=== PATIENT | male | born 1970 | race Caucasian/White ===

== ENCOUNTER 2020-09-10 20:39 | Observation (INO) ==
[2020-09-10 21:40] LABS: BASOPHILS # (AUTO) 0.1 X10^3/uL (0.0-0.1); BASOPHILS % (AUTO) 0.5 % (0.2-1.0); EOSINOPHILS # (AUTO) 0.2 x10^3/uL (0.0-0.2); EOSINOPHILS % (AUTO) 1.3 % (0.9-2.9); HEMATOCRIT 45.2 % (42.0-54.0); HEMOGLOBIN 15.2 g/dL (13.5-18.0); LYMPHOCYTES # (AUTO) 2.4 X10^3/uL (1.3-2.9); LYMPHOCYTES % (AUTO) 14.6 % (21.0-51.0); MEAN CORPUSCULAR HGB CONC 33.5 g/dL (33.0-35.0); MEAN CORPUSCULAR VOLUME 92.5 fL (80.0-100.0); MONOCYTES # (AUTO) 1.2 x10^3/uL (0.3-0.8); MONOCYTES % (AUTO) 7.3 % (0.0-13.0); NEUTROPHILS # (AUTO) 12.7 x10^3/uL (2.2-4.8); NEUTROPHILS % (AUTO) 76.3 % (42.0-75.0); PLATELET COUNT 292 X10^3/uL (150.0-450.0); RED BLOOD COUNT 4.89 X10^6/uL (4.7-6.0); WHITE BLOOD COUNT 16.6 X10^3/uL (3.6-10.0)
--- NOTE | 2020-09-10 21:47 | RAD ---
Acute abdomen supine upright chest three views 4 imagesIndication: Abdominal pain. Nausea and vomiting.FINDINGSMonitor leads obscure minimal detail. There is no pneumothorax, effusion or consolidation. Heart size is normal. Spine DJD noted. There is no free air or pneumatosis. Gas and stool seen in the colon. No abnormal calcific density identified.IMPRESSIONNo high-grade obstruction, free air or pneumatosis.Electronically signed by: SID ESPINOSA (Sep 10, 2020 21:45:21)
[2020-09-10 22:16] LABS: ALANINE AMINOTRANSFERASE 39 Units/L (12-78); ALBUMIN 4.2 g/dL (3.4-5.0); ALKALINE PHOSPHATASE 82 Units/L (46-116); ASPARTATE AMINO TRANSFERASE 23 Units/L (15-37); BLOOD UREA NITROGEN 20 mg/dL (7-18); CALCIUM 9.8 mg/dL (8.5-10.1); CARBON DIOXIDE 30.6 mmol/L (21-32); CHLORIDE 102 mmol/L (98-107); CKMB % 1.8 % (<4); COR NA(FOR HYPERGLY) 146 mmol/L (136-145); CREATINE KINASE 456 Units/L (39-308); CREATININE 1.25 mg/dL (0.70-1.30); SODIUM 145 mmol/L (136-145); TOTAL PROTEIN 7.8 g/dL (6.4-8.2); TROPONIN I < 0.02 ng/mL (0-1.5); eGFR NON BLACK RACES > 60 (>60)
[2020-09-10] MEDS ORDERED: NS 1000 ML 1,000 ML IV ONE (23:00)
[2020-09-10] MEDS ORDERED: NS 1000 ML 1,000 ML ONE (23:07)
--- NOTE | 2020-09-10 23:08 | DR.ABDMALE ---
HPI Time seen Time Seen by Provider: 09/10/20 22:11 PCP Primary Care Physician: TIA HPI comment HPI Comment: chest and upper epigastric pain w diaphoresis just captain cannery tender. Complaint Chief Complaint:: PT STATES JUST PRIOT TO CALLING EMS HE BEGAN TO HAVE A PAINFUL "FULL FEELING" IN THE TOP OF HIS ABDOMEN AND IMMEDIATELY BECAME VERY "SWEATY, COULDNT BREATH, AND WAS VERY NAUSEATED." HIS GAVE HIM 81 MG OF ASA BEFORE EMS ARRIVED AND EMS GAVE ANOTHER DOSE OF ASA TO EQUAL 324MG. 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 ON ARRIVAL PT STATES THAT HE FEELS BETTER WITH NO PAIN EXCEPT FOR A CRAMP IIN HIS LEFT THIGH. COVID-19 Coronavirus risk:travel/contact w/high risk person: No Has patient experienced Coronavirus symptoms: No Source History provided by:: Patient Mode of arrival Mode of Arrival: EMS Timing Onset of Chief Complaint: 09/10/20 PMH PMH Past Medical History: Yes Past Medical History: Dyslipidemia and Hypertension Past Surgical History: Yes Surgical History: Other Past Surgical History Comment: PT STATES THAT A HE HAD PART OF HIS SKULL REMOVED DUE TO BEING BORN WITHOUT A SOFT SPOT. Family History History of Family Medical Conditions: No Social History Does patient currently use any type of tobacco product: Yes Have you used tobacco products in the last 12 months: Yes Type of Tobacco Use: Cigarettes Does any household member use tobacco: No Alcohol Use: Occasionally Do you use any recreational Drugs:: Yes (MARIJUANA) Lives With: Family Lives Where: Home Travel Risk Coronavirus risk:travel/contact w/high risk person: No Has patient experienced Coronavirus symptoms: No Infectious screening In the last 2 months have you had wt loss of >10#?: NO Have you had fever, night sweats or hemotysis?: No Have you traveled outside the country in the last 6 months?: No Isolation: Standard ROS Review of Systems Constitutional: See HPI Eyes: No Symptoms Reported ENTM: No Symptoms Reported Respiratoy: No Symptoms Reported Cardiovascular: See HPI Gastrointestinal/Abdominal: See HPI Genitourinary: No Symptoms Reported Neurological: No Symptoms Reported Musculoskeletal: No Symptoms Reported Integumentary: No Symptoms Reported Endocrine: No Symptoms Reported PE Vital Signs Vital Signs: Temp Pulse Resp BP Pulse Ox 09/10/20 23:00 74 24 125/79 99 09/10/20 22:45 65 18 98 09/10/20 22:30 68 22 120/74 99 09/10/20 22:15 74 25 H 100 09/10/20 22:00 73 40 H 131/78 100 09/10/20 21:45 76 14 99 09/10/20 21:30 81 31 H 138/83 100 09/10/20 21:15 71 19 97 09/10/20 21:00 68 19 126/78 100 09/10/20 20:54 82 17 100 09/10/20 20:43 98.3 F 83 21 125/78 99 03/28/12 14:31 118/79 General General Appearance: Alert and In No Apparent Distress Head Head Exam: Normal Inspection, Atraumatic and Normocephalic Eyes Eye exam: Normal Appearance, PERRL and EOMI ENT ENT Exam: Normal Exam and TM's Normal Bilaterally Neck Neck Exam: Normal Inspection and Full ROM Respiratory Respiratory Exam: Normal Lung Sounds Bilat Cardiovascular Cardiovascular Exam: Regular Rate and Normal Heart Sounds Abdominal Exam Abdominal Exam: Normal Inspection and Normal Bowel Sounds Back Back Exam: Normal Inspection and Full ROM Extremeties Extremities Exam: Normal Inspection and Full ROM Neurologic Neurological Exam: Alert and Oriented X3 Skin Skin Exam: Warm, Dry and Intact COURSE Treatment Treatment: elev CK and CK-MB. neg TNI ROR Labs Reviewed Laboratory Results Reviewed?: Yes Result Diagrams: 09/10/20 21:30 09/10/20 21:30 Laboratory: WBC 16.6 X10^3/uL (3.6-10.0) H 09/10/20 21:30 RBC 4.89 X10^6/uL (4.7-6.0) 09/10/20 21:30 Hgb 15.2 g/dL (13.5-18.0) 09/10/20 21:30 Hct 45.2 % (42.0-54.0) 09/10/20 21:30 MCV 92.5 fL (80.0-100.0) 09/10/20 21:30 MCH 31.0 pg (27.0-34.0) 09/10/20 21:30 MCHC 33.5 g/dL (33.0-35.0) 09/10/20 21:30 RDW 13.0 % (11.6-16.5) 09/10/20 21:30 Plt Count 292 X10^3/uL (150.0-450.0) 09/10/20 21:30 MPV 7.0 fL (7.4-11.0) L 09/10/20 21:30 Neut % (Auto) 76.3 % (42.0-75.0) H 09/10/20 21:30 Lymph % (Auto) 14.6 % (21.0-51.0) L 09/10/20 21:30 Sharp % (Auto) 7.3 % (0.0-13.0) 09/10/20 21:30 Eos % (Auto) 1.3 % (0.9-2.9) 09/10/20 21:30 Baso % (Auto) 0.5 % (0.2-1.0) 09/10/20 21:30 Neut # (Auto) 12.7 x10^3/uL (2.2-4.8) H 09/10/20 21:30 Lymph # (Auto) 2.4 X10^3/uL (1.3-2.9) 09/10/20 21:30 Sharp # (Auto) 1.2 x10^3/uL (0.3-0.8) H 09/10/20 21:30 Eos # (Auto) 0.2 x10^3/uL (0.0-0.2) 09/10/20 21:30 Baso # (Auto) 0.1 X10^3/uL (0.0-0.1) 09/10/20 21:30 Absolute Nucleated RBC 0.0 /100WBC 09/10/20 21:30 Sodium 145 mmol/L (136-145) 09/10/20 21:30 Corrected Sodium 146 mmol/L (136-145) H 09/10/20 21:30 Potassium 3.9 mmol/L (3.5-5.1) 09/10/20 21:30 Chloride 102 mmol/L (98-107) 09/10/20 21:30 Carbon Dioxide 30.6 mmol/L (21-32) 09/10/20 21:30 BUN 20 mg/dL (7-18) H 09/10/20 21:30 Creatinine 1.25 mg/dL (0.70-1.30) 09/10/20 21:30 Est GFR (MDRD) Af Amer > 60 (>60) 09/10/20 21:30 Est GFR (MDRD) Non-Af > 60 (>60) 09/10/20 21:30 Glucose 121 mg/dL (65-99) H 09/10/20 21:30 Calcium 9.8 mg/dL (8.5-10.1) 09/10/20 21:30 Corrected Calcium TNP 09/10/20 21:30 Total Bilirubin 0.30 mg/dL (0.2-1.0) 09/10/20 21:30 AST 23 Units/L (15-37) 09/10/20 21:30 ALT 39 Units/L (12-78) 09/10/20 21:30 Alkaline Phosphatase 82 Units/L (46-116) 09/10/20 21:30 Creatine Kinase 456 Units/L (39-308) H 09/10/20 21:30 CK-MB (CK-2) 8.0 ng/mL (0-4.0) H* 09/10/20 21:30 CK/CKMB % Calc 1.8 % (<4) 09/10/20 21:30 Troponin I < 0.02 ng/mL (0-1.5) 09/10/20 21:30 Total Protein 7.8 g/dL (6.4-8.2) 09/10/20 21:30 Albumin 4.2 g/dL (3.4-5.0) 09/10/20 21:30 Globulin 3.6 g/dL (2.5-4.5) 09/10/20 21:30 Albumin/Globulin Ratio 1.2 Ratio (1.1-2.1) 09/10/20 21:30 Opioid Opioid Risk Tool Age (Gordon box if 16-45): No Total: 0 Total Score Risk Category: Low Risk Copyright: Seun TREADWELL predicting aberrant behaviors Diagnosis Discharge Problem: Chest pain, Exposure to excessive natural heat as cause of accidental injury
[2020-09-11 01:49] LABS: CKMB % 2.4 % (<4); CREATINE KINASE 340 Units/L (39-308); TROPONIN I < 0.02 ng/mL (0-1.5)
[2020-09-11 01:50] LABS: CREATINE KINASE MB 8.1 ng/mL (0-4.0)
[2020-09-11 02:38] VITALS: BMI 23.6
[2020-09-11 05:05] LABS: BASOPHILS % (AUTO) 0.5 % (0.2-1.0); EOSINOPHILS # (AUTO) 0.2 x10^3/uL (0.0-0.2); EOSINOPHILS % (AUTO) 2.3 % (0.9-2.9); HEMATOCRIT 38.1 % (42.0-54.0); HEMOGLOBIN 13.1 g/dL (13.5-18.0); LYMPHOCYTES # (AUTO) 2.5 X10^3/uL (1.3-2.9); LYMPHOCYTES % (AUTO) 26.2 % (21.0-51.0); MEAN CORPUSCULAR HEMOGLOBIN 31.4 pg (27.0-34.0); MEAN CORPUSCULAR HGB CONC 34.4 g/dL (33.0-35.0); MEAN CORPUSCULAR VOLUME 91.1 fL (80.0-100.0); MEAN PLATELET VOLUME 7.4 fL (7.4-11.0); MONOCYTES # (AUTO) 0.9 x10^3/uL (0.3-0.8); MONOCYTES % (AUTO) 9.3 % (0.0-13.0); NEUTROPHILS # (AUTO) 5.9 x10^3/uL (2.2-4.8); NEUTROPHILS % (AUTO) 61.7 % (42.0-75.0); PLATELET COUNT 253 X10^3/uL (150.0-450.0); RED BLOOD COUNT 4.18 X10^6/uL (4.7-6.0); RED CELL DISTRIBUTION WIDTH 12.9 % (11.6-16.5); WHITE BLOOD COUNT 9.5 X10^3/uL (3.6-10.0)
[2020-09-11 05:50] LABS: ALANINE AMINOTRANSFERASE 29 Units/L (12-78); ALBUMIN 3.1 g/dL (3.4-5.0); ALKALINE PHOSPHATASE 65 Units/L (46-116); ASPARTATE AMINO TRANSFERASE 20 Units/L (15-37); BLOOD UREA NITROGEN 16 mg/dL (7-18); CALCIUM 8.5 mg/dL (8.5-10.1); CARBON DIOXIDE 29.4 mmol/L (21-32); CHLORIDE 107 mmol/L (98-107); CKMB % 2.4 % (<4); COR CA(FOR HYPOALB) 9.2 mg/dL (8.5-10.1); COR NA(FOR HYPERGLY) 145 mmol/L (136-145); CREATINE KINASE 333 Units/L (39-308); CREATININE 0.83 mg/dL (0.70-1.30); SODIUM 144 mmol/L (136-145); TOTAL PROTEIN 6.1 g/dL (6.4-8.2); TROPONIN I < 0.02 ng/mL (0-1.5); eGFR NON BLACK RACES > 60 (>60)
[2020-09-11 05:52] LABS: CREATINE KINASE MB 8.1 ng/mL (0-4.0)
[2020-09-11] MEDS ORDERED: K-DUR TAB 20 MEQ PO PRN (05:54)
[2020-09-11] MEDS ORDERED: K-RIDER 10 MEQ/NS 100 ML 10 MEQ/100 ML BAG IV PRN (05:54)
[2020-09-11] MEDS ORDERED: KLOR-CON PO PRN (05:54)
[2020-09-11] MEDS ORDERED: POTASSIUM CHLORIDE LIQ 20 MEQ UDC PO PRN (05:54)
[2020-09-11] MEDS ORDERED: POTASSIUM CHL 60 MEQ/NS 0.45% 500 ML IV PRN (05:54)
[2020-09-11] MEDS ORDERED: MICRO K EXTEN CAP 10 MEQ PO PRN (05:54)
[2020-09-11] MEDS ORDERED: POTASSIUM CHL 40 MEQ/NS 0.45% 500 ML IV PRN (05:54)
[2020-09-11] MEDS ORDERED: KLOR-CON ONE (06:03)
[2020-09-11] MEDS ORDERED: NS 1000 ML 1,000 ML IV ONE (09:24)
--- NOTE | 2020-09-11 09:52 | DR.CARTERS ---
Short Stay Summary - Admission Date Date of Admission: 09/10/20 - Discharge Date Discharge Date: 09/11/20 - Admission Diagnoses (1) Chest pain, rule out acute myocardial infarction Status: Acute (2) Rhabdomyolysis Status: Acute - Hospital Course Hospital Course: IS A 50 YEAR OLD PATIENT OF OURS WHO PRESENTED TO THE ER VIA EMS WITH COMPLAINTS OF FEELING FULL IN THE TOP OF HIS ABDOMEN, CHEST PRESSURE, DIAPHORESIS, SHORTNESS OF BREATH, MUSCLE CRAMPING, AND NAUSEA. PATIENT REPORTED THAT SYMPTOMS STARTED ABOUT 45 MINUTES-1 HOUR PRIOR TO ARRIVAL. PATIENT ALSO ADMITTED TO SEVERAL EPISODES OF COUGHING UP A SMALL AMOUNT OF BLOOD. THIS STARTED 3-4 DAYS AGO. HE REPORTED TAKING AN 81MG ASPIRIN PRIOR TO ARRIVAL. 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 ON ARRIVAL TO THE ER, HE REPORTED RELIEF OF CHEST/EPIGASTRIC SYMPTOMS. HIS PMH INCLUDES: DYSLIPIDEMIA, HTN, CARPAL TUNNEL, AND CRANIOSYNOSTOSIS AN . HE DID ADMIT TO REGULAR USE OF MARIJUANA. ON ARRIVAL TO THE HOSPITAL, VITALS WERE 98.3-83-21-99%-125/78. LABS WERE OBTAINED. ABNORMAL LAB VALUES INCLUDED THE FOLLOWING: WBC 16.6, BUN 20, GLUCOSE 121, CREATINE KINASE 456, CK-MB 8.0. TROPONIN WAS NORMAL. COVID-19 NEGATIVE. AN EKG WAS OBTAINED AND REVEALED: SINUS RHYTHM WITH HR 69. AN ABDOMINAL SERIES WAS OBTAINED AND REVEALED: There is no pneumothorax, effusion or consolidation. Heart size is normal. Spine DJD noted. There is no free air or pneumatosis. Gas and stool seen in the colon. No abnormal calcific density identified. IN THE ER, HE WAS GIVEN A NORMAL SALINE BOLUS. PATIENT WAS ADMITTED TO THE HOSPITAL FOR FURTHER EVALUATION AND TREATMENT OF CHEST PAIN RULE OUT ACUTE PR AND RHABDOMYOLYSIS. 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 WE PLANNED TO OBTAIN A CHEST CTA TO RULE OUT PE DUE TO HEMOPTYSIS, SERIAL CARDIAC ENZYMES AND CONTINUE TO MONITOR. ON THE MORNING FOLLOWING ADMISSION, PATIENT IS ALERT AND ORIENTED, LYING IN BED ON MORNING ROUNDS. HE DENIES CHEST PAIN OR EPIGASTRIC PAIN THIS MORNING. HE DOES CONTINUE WITH GENERALIZED MUSCLE ACHES AND CRAMPING. ON EXAMINATION, HEART IS REGULAR IN RATE AND RHYTHM. BILATERAL LUNGS ARE CLEAR TO AUSCULTATION. ABDOMEN IS ROUND, SOFT, AND NON-TENDER WITH NORMAL BOWEL SOUNDS NOTED IN ALL QUADRANTS. HIS VITALS THIS MORNING ARE: 97.9-56-20-100%-129/61. LABS WERE OBTAINED. ABNORMAL LAB VALUES INCLUDE THE FOLLOWING: RBC 4.18, HGB 13.1, HCT 38.1, POTASSIUM 3.4, GLUCOSE 124, CREATINE KINASE 333, CK-MB 8.1, TOTAL PROTEIN 6.1, ALBUMIN 3.1. TROPONIN NORMAL. NO CHANGES NOTED TO EKGs. - Discharge Medications Discharge Medications: Home Medication List aspirin [Aspirin Child] 81 mg PO DAILY 09/11/20 [History] melatonin 3 mg PO HS PRN 09/11/20 [History] Prescriptions: - Discharge Plan Disposition: HOME, SELF-CARE Condition: Stable - Follow up/Referrals Follow up/Referrals: Porfirio Lundberg [Primary Care Provider] - 3 days - Instructions
[2020-09-11] MEDS: MAGNESIUM SULFATE 1 GRAM/100 mL PREMIX 1 GM/100 ML BAG IV PRN ×2 (11:40→12:45)
[2020-09-11] MEDS ORDERED: NS 100 ML IV 100 ML ONE (13:29)
[2020-09-11 13:33] VITALS: BP 136/75
--- NOTE | 2020-09-11 14:04 | CT ---
CTA CHESTCLINICAL INDICATION: CHEST PAIN, HEMOPTYSIS, ELEVATED D-DIMERPROCEDURE: Non gated axial images of the chest were obtained with intravenous contrast according to pulmonary embolism protocol. MIPS were reconstructed Dose reduction techniques including Automated Exposure Control (AEC) and adjustment of mA and kV were utlized.COMPARISON:NoneFINDINGS:No evidence of a pulmonary embolism to the level of the segmental pulmonary arteries.The heart is normal in size . No pericardial effusion. Moderate to severe coronary calcification. No suspicious mediastinal or axillary lymph nodes . No focal consolidations, pleural effusions or pneumothorax .Airways are patent . No suspicious pulmonary nodules or masses .Limited images of the upper abdomen are unremarkable.No aggressive osseous lesions.IMPRESSION:1. No evidence of pulmonary embolism.Electronically signed by: KYLEIGH POLANCO (Sep 11, 2020 14:02:05)
--- NOTE | 2020-09-11 15:00 | RAD ---
HISTORYRIGHT ANKLE PAIN, EDEMASTUDYANKLE, RIGHT x-ray three viewsCOMPARISONNoneFINDINGSLittle if any soft tissue swelling. There is slight lucency within the medial aspect of the lateral femoral condyle. This could be a nondisplaced fracture but is probably artifact. No widening of the ankle mortise.IMPRESSIONTransverse linear lucency in the lateral malleolus is probably artifact but could be nondisplaced fracture. Correlation with MRI may be useful.Electronically signed by: William Vences (Sep 11, 2020 14:59:24)
== END 2020-09-11 16:00 | disposition home or self-care (01) ==
LOC: ER 20:39 → MED/SURG 20:39
PROVIDERS: ADMIT Internal Medicine; ATTEND Internal Medicine
DX: M25.571 Pain in right ankle and joints of right foot; R73.09 Other abnormal glucose; I10 Essential (primary) hypertension; M62.82 Rhabdomyolysis; R06.02 Shortness of breath; F12.10 Cannabis abuse, uncomplicated; Z20.822 Contact with and (suspected) exposure to COVID-19; R07.89 Other chest pain; R04.2 Hemoptysis